=== PATIENT | male | born 1950 | race Caucasian/White ===

== ENCOUNTER 2016-08-10 13:06 | Emergency (ER) | payer MEDICAID ==
[~2016-08-10] VITALS: Ht 188 cm; Wt 84.0 kg
[2016-08-10 13:08] VITALS: BP 138/75; PULSE 72; RESP 15; TEMP 98.3; O2SAT 98
--- NOTE | 2016-08-10 13:17 | PD ---
Physical Exam Date Seen by Provider: Aug 10, 2016 Time Seen by Provider: 13:12 Narrative 65 y/o male presents with Hx. fall from tripping last night injuring his left foot, with abrasions to the left elbow, forearm, and Left Knee. Patient denies LOC, Head Injury or neck pain. Patient unable to bear weight left foot. Pain . Last tetanus 2013. V/S stable and patient awaiting med placement. Data Data Last Documented VS Vital Signs Date Time Temp Pulse Resp B/P Pulse Ox O2 Delivery O2 Flow Rate FiO2 08/10/16 13:08 98.3 72 15 138/75 98 MDM Medical Record Reviewed: Yes Supervised Visit with CHRISTIE: Yes Condition: Stable Vladimir Santana Aug 10, 2016 13:17
--- NOTE | 2016-08-10 13:32 | PD ---
HPI Chief Complaint: Fall Time Seen by Provider: 13:32 Travel History International Travel<30 days: No Contact w/Intl Traveler<30days: No Traveled to known affect area: No History of Present Illness HPI 65-year-old male with a history of hypertension, hyperlipidemia, PAD presents to the emergency department for evaluation of tripped and fall that occurred yesterday. Patient states that yesterday he was walking outside his apartment last night wearing flip-flops and slipped on his flip-flops causing him to fall. States that he did have a hold of his crutch and the side rail of the ramp when he fell so he landed on his bottom. States he somehow injured his left foot and left forearm when he fell. Denies head trauma or loss of consciousness. He is complaining of pain over the top of his left foot aggravated with palpation and weightbearing. States that he has a bruise to his left forearm and also an abrasion but states when he palpates the area he feels like there might be something stuck in the skin. He states that secondary to his peripheral arterial disease he has chronic numbness and tingling in the left lower leg, states that it feels slightly worse over the area of his pain. No other complaints. PFSH Past Medical History Hx Anticoagulant Therapy: Yes Heart Rhythm Problems: Yes (BRADYCARDIA ) Cardiac Catheterization: Yes Cardiovascular Problems: Yes (PACEMAKER) Cerebrovascular Accident: Yes (CVA) Coronary Artery Disease: Yes Diminished Hearing: No Immunizations Current: No Renal Failure: Yes (STAGE 3 KIDNEY DSE ) Tetanus Vaccination: Unknown Influenza Vaccination: No Past Surgical History Cardiac Surgery: Yes (PACEMAKER 2014, STENT IN THE ARTERY , BYPASS TO L LEG ) Coronary Stent: Yes (2001 X 2 ) Tonsillectomy: Yes Social History Alcohol Use: Yes (BEER ) Tobacco Use: Yes (1 PPD ) Substance Use: No Allergies-Medications (Allergen,Severity, Reaction): Coded Allergies: No Known Allergies (Unverified , 08/10/16) Reported Meds & Prescriptions Reported Meds & Active Scripts Active Lortab (Hydrocodone-Acetaminophen) 5-325 Mg Tab 1 Tab PO Q6H PRN Reported Mirtazapine 7.5 Mg Tab 7.5 Mg PO HS Cilostazol 50 Mg Tab 50 Mg PO BID [place] (Hydrocodone-Acetaminophen) 7.5-325 mg Tab 1 Tab PO QID PRN Lipitor (Atorvastatin Calcium) 10 Mg Tab 10 Mg PO HS Flonase Nasal [place] (Fluticasone Nasal [place]y) 50 Mcg/Act Woody 2 Woody EACH NARE DAILY Toprol XL (Metoprolol Succinate) 25 Mg Tab 12.5 Mg PO DAILY Flovent Hfa 10.6 GM Inh (Fluticasone Propionate) 44 Mcg/Act Inh 1-2 Puff INH BID Use daily at the same time. Gabapentin 300 Mg Cap 300 Mg PO TID Lisinopril 5 Mg Tab 5 Mg PO DAILY Review of Systems Except as stated in HPI: all other systems reviewed are Neg Physical Exam Narrative GENERAL: Well-nourished and well-developed pleasant male patient in no acute distress who is nontoxic appearing. SKIN: Warm and dry. Left forearm with two abrasions, no foreign body material noted. HEAD: Normocephalic and atraumatic. EYES: No injection, drainage, or hyphema noted. PERRLA. EOMI. ENT: No nasal drainage noted. Oropharynx is clear. NECK: Supple and the trachea is midline. CARDIOVASCULAR: Regular rate and rhythm. RESPIRATORY: Breath sounds are equal bilaterally with no accessory muscle use, wheezing, rhonchi, or crackles. MUSCULOSKELETAL: Swelling over the dorsal aspect of left foot with tenderness to palpation. DP pulses are not palpable however they are dopplerable bilaterally, patient reports this is his baseline. Capillary refill is within normal limits. Sensation is intact. Left forearm with small contusion. No obvious deformities, swelling, cyanosis, or ecchymosis is present throughout the upper and lower extremities. Patient has full range of motion without any signs of neurovascular compromise. NEUROLOGICAL: Awake, alert, and oriented. Normal speech and gait. Cranial nerves are grossly intact. Data Data Last Documented VS Vital Signs Date Time Temp Pulse Resp B/P Pulse Ox O2 Delivery O2 Flow Rate FiO2 08/10/16 13:08 98.3 72 15 138/75 98 Orders Foot, Complete ([id number]) (08/10/16 13:31) Forearm (2vws) (08/10/16 13:31) Acetamin-Hydrocod 325-5 Mg (Bells 5-325 (08/10/16 13:45) Splint Or Brace Apply/Monitor (08/10/16 14:48) Splint Or Brace Apply/Monitor (08/10/16 14:51) MDM Medical Decision Making Medical Screen Exam Complete: Yes Emergency Medical Condition: Yes Differential Diagnosis Contusion versus sprain versus fracture versus abrasion Narrative Course 65-year-old male presents to the emergency department for evaluation of left foot pain and left forearm contusion status post fall that occurred last night. Patient is afebrile, vital signs are stable. All extremities are neurovascularly intact. X-ray imaging has been ordered and is pending. X-ray of the left forearm is negative for any acute abnormalities, no foreign body. X-ray of the left foot shows nondisplaced fifth metatarsal base fracture, nondisplaced fifth metatarsal head fracture, nondisplaced fifth toe proximal phalanx fracture. The patient does have swelling and pain over all of these locations and therefore these are acute fractures. The patient states he will not tolerate using crutches but states he has a walker at home. We'll place him in a walking boot and he is instructed to use his walker and avoid weightbearing on the left foot. Fifth and fourth toes are emeterio taped. He is instructed to follow-up with a flat locker. Patient verbalizes understanding and agreement with treatment plan. Diagnosis Primary Impression: Fracture of fifth metatarsal bone of left foot Qualified Code: S92.355A - Closed nondisplaced fracture of fifth metatarsal bone of left foot, initial encounter Additional Impression: Fracture of fifth toe, left, closed Qualified Code: S92.502A - Fracture of fifth toe, left, closed, initial encounter Referrals: Malika Norton DPM Physician General Practice Patient Instructions: Foot Fracture in Adults (ED), General Instructions, Toe Fracture (ED) Additional Instructions: Walking boot. Avoid weight bearing on the left foot. Elevate left foot. Apply ice for 20 minutes on, 20 minutes off. Take medication as prescribed with food and a full glass of water. Do not take Lortab with alcohol or while driving. Follow-up with your Primary Care Physician. Return to the ED for any acute worsening of symptoms. Med/Other Pt SpecificInfo: Prescription(s) given Scripts Hydrocodone-Acetaminophen (Lortab)5-325 Mg Tab1 Tab PO Q6H PRN (PAIN GREATER THAN 6) #20 TAB Ref 0 Prov:Alex Castro MD 08/10/16 Disposition: 01 DISCHARGE HOME Condition: Stable Geraldine Kitchen Aug 10, 2016 13:32
[2016-08-10] MEDS ORDERED: ACETAMINOPHEN/HYDROcodone 325 MG/5 MG TAB PO ONE (13:45)
[2016-08-10] MEDS ORDERED: LIPI10TA PO (14:33)
[2016-08-10] MEDS ORDERED: GABA300C5 PO (14:33)
[2016-08-10] MEDS ORDERED: CILO50TA PO (14:33)
[2016-08-10] MEDS ORDERED: FLUT1SPR5 EACH NARE (14:33)
[2016-08-10] MEDS ORDERED: LISI-519 PO (14:33)
[2016-08-10] MEDS ORDERED: HYDR-3288 PO (14:33)
[2016-08-10] MEDS ORDERED: FLUTI44I INH (14:33)
[2016-08-10] MEDS ORDERED: TOPR25TA PO (14:33)
[2016-08-10] MEDS ORDERED: REME15TA PO (14:33)
[2016-08-10] MEDS ORDERED: MIRT1TAB PO (14:34)
--- NOTE | 2016-08-10 14:37 | RADRPT ---
EXAM DATE/TIME: 08/10/2016 13:46 [facility] COMPARISON: No previous studies available for comparison. INDICATIONS : Fall injury to left foot. MEDICAL HISTORY : None. SURGICAL HISTORY : None. ENCOUNTER: Initial ACUITY: 1 day PAIN SCORE: 0/10 LOCATION: Left foot FINDINGS: 3 views left foot. Bone alignment within normal limits. Nondisplaced horizontal fracture of the base of the fifth metatarsal 1 cm to the tarsometatarsal joint. Nondisplaced fracture base of fifth toe pr oximal phalanx, age indeterminate. Nondisplaced fracture fifth metatarsal head also age-indeterminate . CONCLUSION: Nondisplaced fifth metatarsal base fracture. Nondisplaced fifth toe proximal phalanx fracture, age-in determinate and nondisplaced fifth metatarsal head fracture age-indeterminate. Aroldo Spencer MD on August 10, 2016 at 14:30 Board Certified Radiologist. This report was verified electronically.
--- NOTE | 2016-08-10 14:40 | RADRPT ---
EXAM DATE/TIME: 08/10/2016 13:49 [facility] COMPARISON: No previous studies available for comparison. INDICATIONS : Fall, lacerations to posterior forearm. MEDICAL HISTORY : None. SURGICAL HISTORY : None. ENCOUNTER: Initial ACUITY: 1 day PAIN SCORE: 0/10 LOCATION: Left forearm FINDINGS: 2 views left forearm. Bone alignment within normal limits. No evidence of fracture. CONCLUSION: No evidence of fracture. No radiopaque foreign body identified. Aroldo Spencer MD on August 10, 2016 at 14:37 Board Certified Radiologist. This report was verified electronically.
[2016-08-10] MEDS ORDERED: HYDR-3533 PO (14:50)
== END 2016-08-10 16:03 | disposition home or self-care (01) ==
LOC: NEPD 13:06
DX: S92.355A Nondisplaced fracture of fifth metatarsal bone, left foot, initial encounter for closed fracture (principal); S92.505A Nondisplaced unspecified fracture of left lesser toe(s), initial encounter for closed fracture; M79.632 Pain in left forearm; W01.0XXA Fall on same level from slipping, tripping and stumbling without subsequent striking against object, initial encounter; Y93.01 Activity, walking, marching and hiking; Y92.038 Other place in apartment as the place of occurrence of the external cause; I10 Essential (primary) hypertension; I73.9 Peripheral vascular disease, unspecified; Z79.01 Long term (current) use of anticoagulants; F17.210 Nicotine dependence, cigarettes, uncomplicated
CPT/HCPCS: 73090; 73630; 99283; L2114

== ENCOUNTER 2017-04-09 12:45 | Emergency (ER) | payer MEDICAID ==
[~2017-04-09 12:45] MED LIST: CILO50TA PO; FLUT1SPR5 EACH NARE; FLUTI44I INH; GABA300C5 PO; HYDR-3288 PO; HYDR-3533 PO; LIPI10TA PO; LISI-519 PO; MIRT1TAB PO; TOPR25TA PO
[2017-04-09 12:48] VITALS: BP 151/96; PULSE 82; RESP 16; TEMP 98.2; O2SAT 98
--- NOTE | 2017-04-09 14:16 | RADRPT ---
EXAM DATE/TIME: 04/09/2017 13:27 [facility] COMPARISON: No previous studies available for comparison. INDICATIONS : Cough, short of breath. MEDICAL HISTORY : Chronic obstructive pulmonary disease. Congestive heart failure. SURGICAL HISTORY : defibrillator ENCOUNTER: Initial ACUITY: 3 days PAIN SCORE: 0/10 LOCATION: Bilateral chest FINDINGS: PA and lateral views of the chest demonstrate the lungs to be symmetrically aerated with biapical sca rring/emphysema. No confluent infiltrate. Left subclavian bipolar pacer/defibrillator. There appears to be a coronary stent projecting over the heart on the lateral. Osseous structures are intact. CONCLUSION: 1. Biapical fibrotic/emphysematous changes. This appears mild in severity. No confluent infiltrates. 2. Coronary stent projecting over the heart shadow on the lateral. Left subclavian bipolar pacer/defi brillator. Ej Deleon MD on April 09, 2017 at 14:11 Board Certified Radiologist. This report was verified electronically.
[2017-04-09] MEDS ORDERED: ADVA115A INH (15:07)
[2017-04-09] MEDS ORDERED: SYMB80AE INH (15:07)
[2017-04-09] MEDS ORDERED: ALBUAER3 INH (15:50)
[2017-04-09] MEDS ORDERED: AUGM875T3 PO (15:50)
[2017-04-09] MEDS ORDERED: PRED20 PO (15:50)
--- NOTE | 2017-04-09 15:51 | PD ---
HPI Chief Complaint: Respiratory Symptoms Time Seen by Provider: 15:00 Travel History International Travel<30 days: No Contact w/Intl Traveler<30days: No Traveled to known affect area: No History of Present Illness HPI 66-year-old male patient presents emergency department for evaluation of productive cough 2 days and congestion. Patient states the phlegm is thick and green in color. He denies any fevers, chills, malaise. Patient denies any chest pain, ear pain, throat pain, nausea, vomiting, diarrhea. Patient states he quit smoking 2 months ago however he smells like fresh cigarette smoke. PFSH Past Medical History Hx Anticoagulant Therapy: Yes Heart Rhythm Problems: Yes (BRADYCARDIA ) Cardiac Catheterization: Yes Cardiovascular Problems: Yes (PACEMAKER) Cerebrovascular Accident: Yes (CVA) Coronary Artery Disease: Yes Diminished Hearing: No Immunizations Current: No Renal Failure: Yes (STAGE 3 KIDNEY DSE ) Past Surgical History Cardiac Surgery: Yes (PACEMAKER 2014, STENT IN THE ARTERY , BYPASS TO L LEG ) Coronary Stent: Yes (2000 X 2 ) Tonsillectomy: Yes Social History Alcohol Use: Yes (BEER ) Tobacco Use: Yes (1 PPD ) Substance Use: No Allergies-Medications (Allergen,Severity, Reaction): Coded Allergies: No Known Allergies (Unverified Adverse Reaction, Unknown, 04/09/17) Reported Meds & Prescriptions Reported Meds & Active Scripts Active Lortab (Hydrocodone-Acetaminophen) 5-325 Mg Tab 1 Tab PO Q6H PRN Reported Advair Hfa 12 GM Inh (Fluticasone-Salmeterol 12 GM Inh) 115-21 Mcg/Act Aer 2 Puff INH BID Symbicort Inh (Budesonide/Formoterol Fumarate) 80-4.5 Mcg/Act Aero 2 Puff INH Q12HR Mirtazapine 7.5 Mg Tab 7.5 Mg PO HS Cilostazol 50 Mg Tab 50 Mg PO BID [place] (Hydrocodone-Acetaminophen) 7.5-325 mg Tab 1 Tab PO QID PRN Lipitor (Atorvastatin Calcium) 10 Mg Tab 10 Mg PO HS Flonase Nasal [place] (Fluticasone Nasal [place]) 50 Mcg/Act [place] 2 [place] EACH NARE DAILY Toprol XL (Metoprolol Succinate) 25 Mg Tab 12.5 Mg PO DAILY Flovent Hfa 10.6 GM Inh (Fluticasone Propionate) 44 Mcg/Act Inh 1-2 Puff INH BID Use daily at the same time. Gabapentin 300 Mg Cap 300 Mg PO TID Lisinopril 5 Mg Tab 5 Mg PO DAILY Review of Systems Except as stated in HPI: all other systems reviewed are Neg Physical Exam Narrative GENERAL: Well-nourished, well-developed 66-year-old male patient in no acute distress. Nontoxic appearing. SKIN: Focused skin assessment warm/dry. HEAD: Normocephalic. Atraumatic. EYES: No scleral icterus. No injection or drainage. NECK: Supple, trachea midline. No JVD or lymphadenopathy. CARDIOVASCULAR: Regular rate and rhythm without murmurs, gallops, or rubs. RESPIRATORY: Breath sounds equal bilaterally coarse throughout, diminished in the bases. No accessory muscle use. GASTROINTESTINAL: Abdomen soft, non-tender, nondistended. Data Data Last Documented VS Vital Signs Date Time Temp Pulse Resp B/P (MAP) Pulse Ox O2 Delivery O2 Flow Rate FiO2 04/09/17 12:48 98.2 82 16 151/96 (114) 98 Orders Orders Chest, Pa & Lat (04/09/17 ) [facility] Medical Decision Making Medical Screen Exam Complete: Yes Emergency Medical Condition: Yes Differential Diagnosis Differential diagnoses include but not limited to COPD exacerbation, bronchitis , pneumonia, URI Narrative Course Chest x-ray shows emphysematous changes, no infiltrates. Physical exam is consistent with bronchitis. Patient has maintenance inhaler but does not have a rescue inhaler. Patient discharged home with prescription for prednisone, albuterol inhaler and Augmentin. Antibiotic therapy was deemed necessary in this case due to the patient's comorbidities to treat and prevent worsening infection. Patient given instructions to return the emergency Department with any worsening condition. Last Impressions Chest X-Ray 04/09/17 0000 Signed Impressions: Service Date/Time: March 13:27 - CONCLUSION: 1. Biapical fibrotic/emphysematous changes. This appears mild in severity. No confluent infiltrates. 2. Coronary stent projecting over the heart shadow on the lateral. Left subclavian bipolar pacer/defibrillator. Ej Deleon MD Diagnosis Primary Impression: Bronchitis Referrals: Primary Care Physician Patient Instructions: Acute Bronchitis (ED), General Instructions Additional Instructions: Please return to emergency department if your symptoms return or worsen. Follow up with your primary care provider. Take medications as prescribed. Supportive care, stay hydrated, get enough rest, diet as tolerated. Med/Other Pt SpecificInfo: Prescription(s) given Scripts Amoxicillin-Clavulanate (Augmentin) 875-125 Mg Tab 1 TAB PO BID for Infection for 5 Days, #10 TAB 0 Refills Prov: Sanjuana Heath 04/09/17 Prednisone (Prednisone) 20 Mg Tab 40 MG PO DAILY for 5 Days, #10 TAB 0 Refills Take 40 mg (2 tablets) daily for 5 days Prov: Sanjuana Heath 04/09/17 Albuterol 8.5 GM Inh (Proair Hfa 8.5 GM Inh) 90 Mcg/Act Aer 2 PUFF INH Q4-6H Y for SHORTNESS OF BREATH, #1 INHALER 0 Refills 108 mcg/actuation Prov: Sanjuana Heath 04/09/17 Disposition: 01 DISCHARGE HOME Condition: Stable Sanjuana Heath Apr 09, 2017 15:51
== END 2017-04-09 16:05 | disposition home or self-care (01) ==
LOC: NEPK 12:45
DX: J44.9 Chronic obstructive pulmonary disease, unspecified (principal); I25.10 Atherosclerotic heart disease of native coronary artery without angina pectoris; F17.210 Nicotine dependence, cigarettes, uncomplicated
CPT/HCPCS: 71020; 99284

== ENCOUNTER 2018-01-16 13:23 | Inpatient (IN) ==
[2018-01-16] MEDS ORDERED: Sod Chloride 0.9% Inj 1,000 ML IV.SIG ONE (13:38)
[2018-01-16] MEDS ORDERED: Tetanus/Diphtheria Toxoid Adult Vaccine Inj 0.5 ML Vial IM ONE (13:38)
[2018-01-16] MEDS ORDERED: Lidocaine 2%/Epinephrine 1:100,000 30 ML MDV INFILTRATN ONE (13:47)
[2018-01-16 14:11] LABS: Baso % (Auto) 0.7 % (0.0-2.0); Eos # (Auto) 0.1 th/mm3 (0.0-0.4); Hematocrit 34.3 % (39.0-51.0); Hemoglobin 11.7 gm/dL (13.0-17.0); Lymph # (Auto) 1.1 th/mm3 (1.0-4.8); Lymph % (Auto) 20.4 % (9.0-44.0); Mean Corpuscular HGB Conc 34.2 % (32.0-36.0); Mean Corpuscular Volume 96.5 fL (80.0-100.0); Mean Platelet Volume 6.7 fL (7.0-11.0); Mono # (Auto) 0.7 th/mm3 (0.0-0.9); Mono % (Auto) 12.8 % (0.0-8.0); Neut # (Auto) 3.4 th/mm3 (1.8-7.7); Neut % (Auto) 65.1 % (16.0-70.0); Platelet Count 169 th/mm3 (150-450); Red Blood Count 3.56 mil/mm3 (4.50-5.90); Red Cell Distribution Width 15.2 % (11.6-17.2); White Blood Count 5.2 th/mm3 (4.0-11.0)
--- NOTE | 2018-01-16 14:12 | XR ---
EXAM DATE: 01/16/2018 1:39 PM EDT AGE/SEX: 67 years / Male INDICATIONS: Trauma. Fall. Fracture of the right proximal humerus. CLINICAL DATA: This is the patient's initial encounter. Patient reports that signs and symptoms have been present for 1 day and indicates a pain score of 0/10. MEDICAL/SURGICAL HISTORY: . Chronic obstructive pulmonary disease. Congestive heart failure. . Defibrillator COMPARISON: [facility] [place], CHEST PA & LAT, 04/09/2017. . FINDINGS: The lung strange are clear and well-aerated. No focal or acute infiltrates are demonstrated. The heart size is enlarged but stable. There is a pacemaker overlying the left chest. There is a nondisplaced oblique fracture involving the proximal shaft of the right humerus. No joint dislocation is seen at t he shoulder. The right ribs are grossly intact. CONCLUSION: 1. Nondisplaced oblique fracture involving the proximal shaft of the right humerus. 2. No new or acute intrathoracic disease. Electronically signed by: Curtis Burciaga MD 01/16/2018 2:11 PM EDT
[2018-01-16] MEDS ORDERED: Lidocaine 2%/Epinephrine 1;100,000 Inj 50 ML Vial INFILTRATN ONE (14:15)
--- NOTE | 2018-01-16 14:42 | CT ---
EXAM DATE: 01/16/2018 1:43 PM EDT AGE/SEX: 67 years / Male INDICATIONS: Syncopal episode today. CLINICAL DATA: This is the patient's initial encounter. Patient reports that signs and symptoms have been present for 1 day and indicates a pain score of 5/10. MEDICAL/SURGICAL HISTORY: Chronic obstructive pulmonary disease. Coronary artery stent. RADIATION DOSE: 66.34 CTDI (mGy) COMPARISON: No prior exams available for comparison. TECHNIQUE: CT of the head without contrast. Using automated exposure control and adjustment of the mA and/or kV according to patient size, radiation dose was kept as low as reasonably achievable to ob tain optimal diagnostic quality images. DICOM format image data is available electronically for revi ew and comparison. FINDINGS: Cerebrum: The ventricles are normal for age. No evidence of midline shift, mass lesion, hemorrhage or acute infarction. No extraaxial fluid collections are seen. There is a focal area of encephalomal acia involving the right temporal parietal lobe adjacent to the right sylvian fissure. This most like ly an old area of infarction. Posterior Fossa: The cerebellum and brainstem are intact. The 4th ventricle is midline. The cerebe llopontine angle is unremarkable. Extracranial: The visualized portion of the orbits is intact. Skull: The calvaria is intact. No evidence of skull fracture. CONCLUSION: 1. No focal or acute intracranial hemorrhage. 2. Focal area of encephalomalacia involving the right temporal parietal lobe adjacent to the right s ylvian fissure suggestive of an old area of infarction. If clinically indicated, this can be further evaluated with an MRI of the brain on a nonemergent outpatient basis. . Electronically signed by: Curtis Burciaga MD 01/16/2018 2:41 PM EDT
[2018-01-16 14:48] LABS: Albumin 2.5 g/dL (3.4-5.0); Calcium 7.4 mg/dL (8.5-10.1); Carbon Dioxide 24.1 meq/L (21.0-32.0); Potassium 3.9 meq/L (3.5-5.1); Total Protein 5.4 g/dL (6.4-8.2); Troponin I 0.02 ng/mL (0.02-0.05)
[2018-01-16] MEDS ORDERED: Acetaminophen 325 MG Tablet PO PRN (16:12)
--- NOTE | 2018-01-16 16:36 | XR ---
EXAM DATE: 01/16/2018 3:56 PM EDT AGE/SEX: 67 years / Male INDICATIONS: Right proximal humeral pain after falling during syncopal episode today. CLINICAL DATA: This is the patient's subsequent encounter. Patient reports that signs and symptoms h ave been present for 1 day and indicates a pain score of 10/10. MEDICAL/SURGICAL HISTORY: Hypertension. Smoker. None. COMPARISON: No prior exams available for comparison. FINDINGS: There is a nondisplaced oblique fracture the proximal shaft of the right humerus. The rest the bony s tructures are grossly intact. No joint dislocation is demonstrated. CONCLUSION: Nondisplaced oblique fracture involving the proximal shaft of the right humerus. Electronically signed by: Curtis Burciaga MD 01/16/2018 4:35 PM EDT
--- NOTE | 2018-01-16 16:40 | P.HPIM ---
History of Present Illness Primary Care Physician: Aidan Main Chief Complaint: Passed out History of Present Illness: The patient is a 67-year-old male with a past medical history of CAD and peripheral vascular disease who is presenting to the hospital after passing out. The patient says he was walking earlier and stepped on a sidewalk when all of a sudden he woke up bleeding from his head. He denied any symptoms prior to passing out. He said there were people around him and that he thinks he passed out for only a few seconds. He says he recently was treated at an outside hospital where he had his pacemaker adjusted. He says since going home last month he has had 2 seizure-like activities. He says on both accounts he passed out, once on the floor and once in a chair. He says on 1 of the occasions he felt a sensation like his tongue rolled up in his mouth. The patient currently experiences significant pain in his right arm. He says he has had his pacemaker interrogated recently and also today. 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 - Medical History Medical History: Medical History (Last Updated 01/16/18 @ 17:13 by Evin Orourke DO) Bleeding ulcer Bradycardia COPD (chronic obstructive pulmonary disease) Femoral-femoral bypass graft thrombosis, left Femoral-femoral bypass graft thrombosis, right Fracture of right hip requiring operative repair Myocardial infarction Peripheral vascular disease Cardiac defibrillator in place - Surgical History Surgical History: Surgical History (Last Reviewed 01/16/18 @ 16:38 by Evin Orourke DO) H/O heart artery stent History of angioplasty of peripheral vessel - Family History Family History: Family History (Last Updated 01/16/18 @ 17:13 by Evin Orourke DO) Other Adopted - Social History I have reviewed the patient's Social History: Yes - Tobacco History Second Hand Smoke Exposure: Yes Tobacco Use In Past 30 Days: Yes Smoking Status: Current every day smoker Tobacco Type: Cigarettes - Alcohol History How Often Do You Have a Drink Containing Alcohol: 4 or more times a week - Substance Use History Substance History: No History of Abuse - Travel History Recent Travel in the [place] Within the Last 8 Weeks: No Recent Travel Out of the Country Within the Last 8 Weeks: No - Immunization History Tetanus Immunization: <5 Years Tetanus Immunization Year if Known: 2015 Medications and Allergies Active Medications: Active Medications Acetaminophen (Tylenol) 650 mg PO Q4H PRN PRN Reason: Temp > 100.4 Clopidogrel Bisulfate (Plavix) 75 mg PO DAILY RIKY Allergies Allergy/AdvReac Type Severity Reaction Status Date / Time No Known Allergies Unknown Uncoded 04/09/17 15:07 Home Medications Medication Instructions Recorded Confirmed Type albuterol sulfate 1 puff INHALATION Q6H PRN 01/16/18 01/16/18 History clopidogrel [Plavix] 75 mg PO DAILY 01/16/18 01/16/18 History Exam Vital signs: Vital Signs 01/16/18 13:33 01/16/18 14:58 01/16/18 16:11 Temperature 97.9 F Pulse Rate 71 Respiratory Rate 18 Blood Pressure 131/72 147/81 H Pulse Oximetry 98 96 Intake & Output 01/15/18 01/16/18 01/16/18 18:59 06:59 18:59 Intake Total 1000 / 1000 Balance 1000 / 1000 Weight 83.915 kg Intake: IV 1000 / 1000 NS Inj 1,000 ML @ Wide Open IV. 1000 / 1000 SIG BOLUS ONE Rx#:[id number] Narrative: General: No distress. HEENT: Incision sutured on right forehead. Lungs: CTAB. Heart: RRR. No murmurs. Abdomen: Nontender, nondistended. Extremities: Right arm with significant pain and reduced ROM. No LE edema. Neuro: A&O x3. EOMI. Moves upper and lower extremities. Results - Labs CBC & Chem 7: 01/16/18 13:56 01/16/18 13:56 Labs: Short CBC 01/16/18 Range/Units 13:56 WBC 5.2 (4.0-11.0) th/mm3 Hgb 11.7 L (13.0-17.0) gm/dL Hct 34.3 L (39.0-51.0) % Plt Count 169 (150-450) th/mm3 BMP 01/16/18 13:56 Sodium 137 Potassium 3.9 Chloride 104 Carbon Dioxide 24.1 BUN 15 Creatinine 1.10 Calcium 7.4 L* Cardiac Enzymes 01/16/18 Range/Units 13:56 Troponin I 0.02 (0.02-0.05) ng/mL Liver Function 01/16/18 Range/Units 13:56 Total Bilirubin 0.4 (0.2-1.0) mg/dL AST 22 (15-37) U/L ALT 17 (12-78) U/L Alkaline Phosphatase 114 (45-117) U/L Albumin 2.5 L (3.4-5.0) g/dL - Imaging Impressions Head CT 01/16/18 13:38 CONCLUSION: 1. No focal or acute intracranial hemorrhage. 2. Focal area of encephalomalacia involving the right temporal parietal lobe adjacent to the right sylvian fissure suggestive of an old area of infarction. If clinically indicated, this can be further evaluated with an MRI of the brain on a nonemergent outpatient basis. . Chest X-Ray 01/16/18 13:39 CONCLUSION: 1. Nondisplaced oblique fracture involving the proximal shaft of the right humerus. 2. No new or acute intrathoracic disease. Humerus X-Ray 01/16/18 15:56 CONCLUSION: Nondisplaced oblique fracture involving the proximal shaft of the right humerus. Caprini VTE Risk Assessment Caprini VTE Risk Assessment: Moderate/High Risk (score >= 2) Caprini Risk Assessment Model: Point Value = 1 Point Value = 2 Point Value = 3 Point Value = 5 Age 41-60 Minor surgery BMI > 25 kg/m2 Swollen legs Varicose veins or History of unexplained or recurrent spontaneous Oral contraceptives or hormone replacement Sepsis (< 1 month) Serious lung disease, including pneumonia (< 1 month) Abnormal pulmonary function Acute myocardial infarction Congestive heart failure (< 1 month) History of inflammatory bowel disease Medical patient at bed rest Age 61-74 Arthroscopic surgery Major open surgery (> 45 min) Laparoscopic surgery (> 45 min) Malignancy Confined to bed (> 72 hours) Immobilizing plaster cast Central venous access Age >= 75 History of VTE Family history of VTE Factor V Leiden Prothrombin [id number] Lupus anticoagulant Anticardiolipin antibodies Elevated serum homocysteine Heparin-induced thrombocytopenia Other congenital or acquired thrombophilia Stroke (< 1 month) Elective arthroplasty Hip, pelvis, or leg fracture Acute spinal cord injury (< 1 month) Prophylaxis Regimen: Total Risk Factor Score Risk Level Prophylaxis Regimen 0-1 Low Early ambulation 2 Moderate Order ONE of the following: *Sequential Compression Device (SCD) *Heparin 5000 units SQ BID 3-4 Higher Order ONE of the following medications: *Heparin 5000 units SQ TID *Enoxaparin/Lovenox 40 mg SQ daily (WT < 150 kg, CrCl > 30 mL/min) *Enoxaparin/Lovenox 30 mg SQ daily (WT < 150 kg, CrCl > 10-29 mL/min) *Enoxaparin/Lovenox 30 mg SQ BID (WT < 150 kg, CrCl > 30 mL/min) AND/OR *Sequential Compression Device (SCD) 5 or more Highest Order ONE of the following medications: *Heparin 5000 units SQ TID (Preferred with Epidurals) *Enoxaparin/Lovenox 40 mg SQ daily (WT < 150 kg, CrCl > 30 mL/min) *Enoxaparin/Lovenox 30 mg SQ daily (WT < 150 kg, CrCl > 10-29 mL/min) *Enoxaparin/Lovenox 30 mg SQ BID (WT < 150 kg, CrCl > 30 mL/min) AND *Sequential Compression Device (SCD) Assessment and Plan - Plan Syncope ? Seizure. The patient had his pacemaker interrogated recently as well as in the emergency department. No abnormalities were found. He has had multiple episodes of passing out since last month. CT of the head suggesting old infarction. -Neurochecks and seizure precautions. -EEG. -Neurology consultation. -Telemetry. -Trend troponins. -Orthostatic blood pressure. Right humeral fracture Noted on imaging. Nondisplaced. -Continue sling. -Pain control with a bowel regimen. -Physical therapy. Urinary hesitancy The patient says that he has been following up with urology as an outpatient. -Continue Flomax. -Outpatient follow-up with urology. Hyperglycemia Likely a stress reaction. -Check a hemoglobin A1c. Nicotine abuse Smokes a pack a day. -cessation instruction. CAD/ PVD History of two cardiac stents and has had LE bypass. -continue ASA and Plavix. Med rec not complete Current med list unavailable. -requested updated med rec. PPx: Lovenox Code Status: Full
[2018-01-16] MEDS: Morphine Inj 4 MG/ML Vial IV.PUSH PRN ×2 (19:12→23:30)
[2018-01-16] MEDS: Senna/Docusate Sodium 8.6/50 MG Tablet PO SCH (20:54)
[2018-01-17 03:02] LABS: Baso % (Auto) 0.6 % (0.0-2.0); Eos # (Auto) 0.1 th/mm3 (0.0-0.4); Eos % (Auto) 1.2 % (0.0-4.0); Hematocrit 37.8 % (39.0-51.0); Hemoglobin 12.8 gm/dL (13.0-17.0); Lymph # (Auto) 1.2 th/mm3 (1.0-4.8); Lymph % (Auto) 21.5 % (9.0-44.0); Mean Corpuscular Hemoglobin 32.9 pg (27.0-34.0); Mean Corpuscular Volume 96.9 fL (80.0-100.0); Mean Platelet Volume 6.6 fL (7.0-11.0); Mono # (Auto) 0.7 th/mm3 (0.0-0.9); Mono % (Auto) 12.2 % (0.0-8.0); Neut # (Auto) 3.7 th/mm3 (1.8-7.7); Neut % (Auto) 64.5 % (16.0-70.0); Platelet Count 172 th/mm3 (150-450); Red Cell Distribution Width 15.3 % (11.6-17.2); White Blood Count 5.8 th/mm3 (4.0-11.0)
[2018-01-17 03:18] LABS: Alanine Aminotransferase 20 U/L (12-78); Albumin 2.8 g/dL (3.4-5.0); Anion Gap 9 meq/L (5-15); Aspartate Aminotransferase 23 U/L (15-37); Blood Urea Nitrogen 15 mg/dL (7-18); Calcium 7.9 mg/dL (8.5-10.1); Carbon Dioxide 26.3 meq/L (21.0-32.0); Chloride 103 meq/L (98-107); Glomerular Filtration Rate 59 mL/min (>89); Glucose,Random 116 mg/dL (74-106); Potassium 4.5 meq/L (3.5-5.1); Sodium 138 meq/L (136-145)
[2018-01-17 03:22] LABS: Alkaline Phosphatase 128 U/L (45-117); Total Protein 6.2 g/dL (6.4-8.2); Troponin I 0.03 ng/mL (0.02-0.05)
[2018-01-17] MEDS: Enoxaparin Inj 30 MG/0.3 ML Syringe SQ SCH (09:57)
[2018-01-17] MEDS: Senna/Docusate Sodium 8.6/50 MG Tablet PO SCH ×2 (09:58→20:22)
--- NOTE | 2018-01-17 10:04 | ECG ---
Date Performed: 01/16/2018 Time Performed: 13:40:49 PTAGE: 67 years EKG: ELECTRONIC VENTRICULAR PACEMAKER ABNORMAL RHYTHM ECG INTERPRETATION BASED ON A DEFAULT AGE OF 40 YEARS NO PREVIOUS TRACING DOCTOR: Justo Jefferson Interpretating Date/Time 01/17/2018 10:02:55
[2018-01-17] MEDS: Morphine Inj 4 MG/ML Vial IV.PUSH PRN ×3 (11:51→23:58)
--- NOTE | 2018-01-17 13:49 | MB ---
cc: Luis Armando Lal MD DATE: 01/17/2018 REASON FOR CONSULTATION: Passing out/seizure. HISTORY OF PRESENT ILLNESS: Mr. Patel is a 67-year-old male with a past medical history of coronary artery disease, peripheral vascular disease, who presented to the hospital after passing out. During the encounter, the patient was seen alone without family members. He reports that had his pacemaker adjusted, placed recently and, 4 days after the pacemaker, he had 2 episodes at home where he passed out on the floor. Usually he has dizzy spells related to position; however, these episodes he was out for a few seconds, does not remember how these happened. Denies tongue biting or loss of bladder or bowel control. In the most recent episode, he was walking in the parking lot and he stepped on the sidewalk when all of a sudden he woke up bleeding from his head. He cannot recall what happened, but he denies postictal confusion, tongue biting, foaming or loss of bladder or bowel control. He is adamant that this was a seizure. He only passed out for a few seconds, as he states. In one of the episodes, he states that his tongue rolled up in his mouth during the episode, and that was the second episode at home. He fell he broke his right arm and he bruised his right eye and received stitches. The pacemaker has been interrogated yesterday in the hospital. REVIEW OF SYSTEMS: A 12-point review of systems is negative except for stated in the HPI. PAST MEDICAL HISTORY: Bradycardia, COPD, [place], peripheral vascular disease, cardiac defibrillator. PAST SURGICAL HISTORY: Heart stents angioplasty of peripheral vessels, CABG, cardiac defibrillator placement. FAMILY HISTORY: Adopted. SOCIAL HISTORY: Secondhand smoker, ex-smoker of cigarettes. Drinks 4 or more times a week. No history of drug abuse. MEDICATIONS: 1. Acetaminophen. 2. Plavix. PHYSICAL EXAMINATION: GENERAL: Awake, alert, oriented, pleasant, cooperative, not in acute distress. HEENT: Incision and sutures on the right forehead. Intact hearing and intact vision. RESPIRATORY: Clear to auscultation. No wheezes. HEART: Regular rate and rhythm, pacemaker defibrillator in place. ABDOMEN: Soft, nontender, nondistended. EXTREMITIES: Right arm is in a splint. No leg edema. NEUROLOGIC: Awake, alert, oriented to time, person and place. Intact external ocular motility. Pupils bilaterally equally reactive to light. No facial asymmetry. Intact hearing. No dysarthria. Moving all extremities equally, other than right upper extremity/splint. Intact reflexes throughout. Normal cerebellar signs. Unable to assess right upper extremity cerebellar sign. Intact sensation throughout. Gait and stance was not assessed. LABORATORY DATA: WBC 5.2, hemoglobin 11.7. Sodium 137, potassium 3.9, BUN 15, creatinine 1.1, calcium low at 7.4. LFT normal. Low albumin at 2.5. IMAGING: Head CT scan with no acute intracranial abnormality. Focal area of encephalomalacia involving the right temporoparietal lobe, adjacent to the right sylvian fissure suggestive of an old area of infarction. Chest x-ray: Nondisplaced oblique fracture involving the proximal shaft of the right humerus. No acute intrathoracic disease. EKG: Normal rhythm, ventricular pacemaker. IMPRESSION AND PLAN: 1. Syncope versus seizure. Need to rule out possible cardiac abnormality; however, pacemaker has been interrogated. No abnormalities identified. CT scan revealed remote infarct, right parietal lesion with encephalomalacia. No personal history of epilepsy. 2. Right humerus fracture. 3. History of remote stroke, right parietal lesion with no residual effect. 4. Nicotine abuse. 5. Coronary artery disease. 6. Neuro checks every 4 hours. 7. EEG. 8. Telemetry. 9. MRI brain if pacemaker is compatible. 10. Fall with seizure precautions. 11. Deep venous thrombosis prophylaxis. 12. Gastrointestinal prophylaxis. Thank you for the opportunity to participate in the care of your patient. Dr. Garcia will followup with the patient Thursday. MD NILAM Davenport/debbie , 11:15 AM , 11:27 AM
--- NOTE | 2018-01-17 14:50 | P.PN ---
Subjective Interval history: awake and alert, no complains of headaches states episodes of seziures in the past defibrillator place last by Dr. Mendez Physical Exam Vital signs: Vital Signs 01/16/18 14:58 01/16/18 16:11 01/16/18 20:00 Temperature 97.8 F Pulse Rate 70 Respiratory Rate 16 Blood Pressure 147/81 H 129/76 Pulse Oximetry 96 97 01/17/18 00:00 01/17/18 04:00 01/17/18 08:00 Temperature 98 F 98 F 98.2 F Pulse Rate 70 70 69 Respiratory Rate 17 17 14 Blood Pressure 106/64 106/64 153/70 H Pulse Oximetry 96 96 98 Intake & Output 01/16/18 01/17/18 01/17/18 18:59 06:59 18:59 Intake Total 1000 / 1000 Output Total 400 / 400 Balance 1000 / 1000 -400 / -400 Weight 83.915 kg 83.915 kg Intake: IV 1000 / 1000 NS Inj 1,000 ML @ Wide Open IV. 1000 / 1000 SIG BOLUS ONE Rx#:[id number] Output: Urine 400 / 400 Narrative: General: No distress. HEENT: Incision sutured on right forehead. Lungs: CTAB. Heart: RRR. No murmurs. Abdomen: Nontender, nondistended. Extremities: Right arm S/Sin place No LE edema. Neuro: A&O x3. EOMI. Results - Labs CBC & Chem 7: 01/17/18 02:45 01/17/18 02:45 Laboratory Results - last 24 hr 01/16/18 01/16/18 01/16/18 13:56 13:56 13:56 WBC RBC Hgb Hct MCV MCH MCHC RDW Plt Count MPV Neut % (Auto) Lymph % (Auto) [place] % (Auto) Eos % (Auto) Baso % (Auto) Neut # (Auto) Lymph # (Auto) [place] # (Auto) Eos # (Auto) Baso # (Auto) WBC Differential Differential Comment Sodium 137 Potassium 3.9 Chloride 104 Carbon Dioxide 24.1 Anion Gap 9 BUN 15 Creatinine 1.10 Estimated GFR 67 L POC Glucose Random Glucose 167 H Hemoglobin A1c 6.0 Calcium 7.4 L* Prot Corrected Calcium 8.3 L Total Bilirubin 0.4 AST 22 ALT 17 Alkaline Phosphatase 114 Troponin I 0.02 Total Protein 5.4 L Albumin 2.5 L TSH 3.290 01/16/18 01/16/18 01/17/18 20:33 20:54 02:45 WBC RBC Hgb Hct MCV MCH MCHC RDW Plt Count MPV Neut % (Auto) Lymph % (Auto) [place] % (Auto) Eos % (Auto) Baso % (Auto) Neut # (Auto) Lymph # (Auto) [place] # (Auto) Eos # (Auto) Baso # (Auto) WBC Differential Differential Comment Sodium 138 Potassium 4.5 Chloride 103 Carbon Dioxide 26.3 Anion Gap 9 BUN 15 Creatinine 1.24 Estimated GFR 59 L POC Glucose 166 H Random Glucose 116 H Hemoglobin A1c Calcium 7.9 L Prot Corrected Calcium Total Bilirubin 0.5 AST 23 ALT 20 Alkaline Phosphatase 128 H Troponin I 0.03 0.03 Total Protein 6.2 L D Albumin 2.8 L TSH 01/17/18 01/17/18 01/17/18 02:45 07:42 13:33 WBC 5.8 RBC 3.90 L Hgb 12.8 L Hct 37.8 L MCV 96.9 MCH 32.9 MCHC 34.0 RDW 15.3 Plt Count 172 MPV 6.6 L Neut % (Auto) 64.5 Lymph % (Auto) 21.5 [place] % (Auto) 12.2 H Eos % (Auto) 1.2 Baso % (Auto) 0.6 Neut # (Auto) 3.7 Lymph # (Auto) 1.2 [place] # (Auto) 0.7 Eos # (Auto) 0.1 Baso # (Auto) 0.0 WBC Differential . Differential Comment Auto diff final Sodium Potassium Chloride Carbon Dioxide Anion Gap BUN Creatinine Estimated GFR POC Glucose 111 H 154 H Random Glucose Hemoglobin A1c Calcium Prot Corrected Calcium Total Bilirubin AST ALT Alkaline Phosphatase Troponin I Total Protein Albumin TSH - Imaging Impressions Humerus X-Ray 01/16/18 15:56 CONCLUSION: Nondisplaced oblique fracture involving the proximal shaft of the right humerus. Assessment and Plan - Plan 67 years old male left handed ? Seizure vs Syncope The patient had his pacemaker interrogated recently as well as in the emergency department. No abnormalities were found. He has had multiple episodes of passing out since last month. CT of the head suggesting old infarction. -Neurochecks- intact -seizure precautions. -EEG. get Echo, carotid US -Neurology ff -Telemetry. - unable to do MRI with defib/PM Right humeral fracture, Nondisplaced. -Continue sling. get orthopedic consult -Pain control with a bowel regimen. -Physical therapy. History of Urinary hesitancy The patient says that he has been following up with urology as an outpatient. -Continue Flomax. -Outpatient follow-up with urology. Hyperglycemia Likely a stress reaction. -good hemoglobin A1c. Nicotine abuse Smokes a pack a day. -cessation instruction. CAD/ PVD History of two cardiac stents and has had LE bypass. -continue ASA and Plavix. - as OP- ff up with Dr. gardner PT saleem after ortho evaluation PPx: Lovenox Code Status: Full
--- NOTE | 2018-01-17 16:29 | US ---
EXAM DATE: 01/17/2018 12:00 AM EDT AGE/SEX: 67 years / Male INDICATIONS: Syncope. CLINICAL DATA: This is the patient's initial encounter. Patient reports that signs and symptoms have been present for 1 day and indicates a pain score of 0/10. MEDICAL/SURGICAL HISTORY: Chronic obstructive pulmonary disease. Bleeding ulcer. Bradycardia. M yocardial infarction. Peripheral vascular disease. CABG. Angioplasty. Cardiac stent. COMPARISON: No prior exams available for comparison. VELOCITY PARAMETERS: ICA/CCA Ratio: Right 0.8 , Left 0.6 ICA: Right 55.7 cm/sec, Left 60.7 cm/sec CCA: Right 68.5 cm/sec, Left 94.4 cm/sec ECA: Right 116.2 cm/sec, Left 114.0 cm/sec Vertebral: Right 50.5 cm/sec antegrade, Left 52.3 cm/sec antegrade FINDINGS: Right Carotid: Mild arteriosclerotic plaque is visualized.The waveforms are within normal limits. Left Carotid: Mild arteriosclerotic plaque is visualized. The waveforms are within normal limits. Other: None. CONCLUSION: 1. Mild atherosclerotic plaquing at both carotid bifurcations. 2. No focal high-grade or hemodynamically significant stenosis is demonstrated. Electronically signed by: Curtis Burciaga MD 01/17/2018 4:28 PM EDT
--- NOTE | 2018-01-18 00:32 | MG ---
cc: Luis Armando Lal MD REFERRING PHYSICIAN: Evin Orourke DO CLINICAL HISTORY: Bleeding ulcer, bradycardia, cardiac defibrillator, COPD, right hip fracture, coronary artery disease, femoral bypass graft, [place], cardiac stent, angioplasty, tobacco use, alcohol use. MEDICATIONS: [place], aspirin, Plavix, Lovenox. DESCRIPTION: Background is slow at a rate of 5-6 Hz theta bilateral and symmetrical. There is excess movement artifact. There is no evidence of electrographic seizures or epileptiform discharges noted. Hyperventilation was omitted. Photic stimulation did not elicit a driving response. INTERPRETATION: This is an awake and drowsy EEG. The generalized slowing may indicate an encephalopathic process that may be secondary to medication effect, metabolic or hypoxic etiology. Absence of electrographic seizures or epileptiform discharges does not exclude diagnosis of epilepsy. Clinical correlation is recommended. Luis Armando Lal MD RGO/rw , 12:06 AM , 12:11 AM
[2018-01-18] MEDS: Morphine Inj 4 MG/ML Vial IV.PUSH PRN ×2 (06:02→12:08)
--- NOTE | 2018-01-18 07:29 | P.CONOP ---
[facility] Orthopedics Consult Note - [facility] Consult date: 01/18/18 Chief complaint: syncope/sz,hueral fracture Narrative: Joey is a 67-year-old male with a history of coronary disease and peripheral vascular disease. He had a fall. He does not clearly recall the fall. There is concern that he had possible seizure. He was on a sidewalk when he fell. He did hit his head. He has had right shoulder pain. Pain is worse with movement. He presented to the emergency room. X-rays revealed a minimally displaced right humerus fracture. He also had a laceration on his forehead. This was closed. Pain is worse with movement of his arm. Pain is improved with rest. He says he recently was treated at an outside hospital where he had his pacemaker adjusted. He says since going home last month he has had 2 seizure- like activities. He says on both accounts he passed out, once on the floor and once in a chair. He says on 1 of the occasions he felt a sensation like his tongue rolled up in his mouth. The patient currently experiences significant pain in his right arm. He says he has had his pacemaker interrogated recently. Review of Systems Patient denies fevers, chills, weight loss, headache, visual changes, hearing loss, chest pain, palpitations, shortness of breath, nausea, vomiting, no urinary changes, diarrhea, bowel changes, neck pain, back pain, skin rashes, weakness of extremities, easy bleeding, enlarged lymph nodes, numbness of extremities, anxiety, or depression. He complains of right arm and shoulder pain. Patient's social history, past medical history, and family history were reviewed on chart and with patient. [facility] - History History Provided By: Customer Professional / EMT - Medical History Medical History: Medical History (Last Reviewed 01/18/18 @ 07:27 by Shlomo Thao MD) Bleeding ulcer Bradycardia COPD (chronic obstructive pulmonary disease) Femoral-femoral bypass graft thrombosis, left Femoral-femoral bypass graft thrombosis, right Fracture of right hip requiring operative repair Myocardial infarction Peripheral vascular disease Cardiac defibrillator in place - Surgical History Surgical History: Surgical History (Last Reviewed 01/18/18 @ 07:27 by Shlomo Thao MD) H/O heart artery stent History of angioplasty of peripheral vessel - Family History Family History: Family History (Last Reviewed 01/18/18 @ 07:27 by Shlomo Thao MD) Other Adopted - Social History I have reviewed the patient's Social History: Yes - Tobacco History Second Hand Smoke Exposure: Yes Tobacco Use In Past 30 Days: Yes Smoking Status: Current every day smoker Tobacco Type: Cigarettes - Alcohol History How Often Do You Have a Drink Containing Alcohol: 4 or more times a week - Substance Use History Substance History: No History of Abuse - Travel History Recent Travel in the [place] Within the Last 8 Weeks: No Recent Travel Out of the Country Within the Last 8 Weeks: No - Immunization History Tetanus Immunization: <5 Years Tetanus Immunization Year if Known: 2016 Medications and Allergies Active Medications: Active Medications Acetaminophen (Tylenol) 650 mg PO Q4H PRN PRN Reason: Temp > 100.4 Hydrocodone Bitart/Acetaminophen ([place] 10/325) 1 tab PO Q4H PRN PRN Reason: pain 3-10 Last Admin: 01/18/18 03:40 Dose: 1 tab Aspirin (Ecotrin) 81 mg PO DAILY [facility] Last Admin: 01/17/18 09:58 Dose: 81 mg Clopidogrel Bisulfate (Plavix) 75 mg PO DAILY [facility] Last Admin: 01/17/18 09:58 Dose: 75 mg Enoxaparin Sodium (Lovenox Inj) 30 mg SQ DAILY [facility] Last Admin: 01/17/18 09:57 Dose: 30 mg Lorazepam (Ativan Inj) 1 mg IV.PUSH Q2H PRN PRN Reason: SEIZURES Morphine Sulfate (Morphine Inj) 4 mg IV.PUSH Q4H PRN PRN Reason: BREAKTHROUGH PAIN Last Admin: 01/18/18 06:02 Dose: 4 mg Senna/Docusate Sodium (Chey-Colace) 1 tab PO BID [facility] Last Admin: 01/17/18 20:22 Dose: Not Given Tamsulosin HCl (Flomax) 0.4 mg PO DAILY [facility] Last Admin: 01/17/18 09:58 Dose: 0.4 mg Allergies Allergy/AdvReac Type Severity Reaction Status Date / Time No Known Allergies Unknown Uncoded 04/09/17 15:07 Home Medications Medication Instructions Recorded Confirmed Type albuterol sulfate 1 puff INHALATION Q6H PRN 01/16/18 01/16/18 History clopidogrel [Plavix] 75 mg PO DAILY 01/16/18 01/16/18 History Advair HFA 2 BID 01/17/18 History Entresto PO 01/17/18 History ProAir HFA BID 01/17/18 History atorvastatin PO DAILY 01/17/18 History fluticasone 2 DAILY 01/17/18 History gabapentin TID 01/17/18 History hydrocodone-acetaminophen PO QID 01/17/18 History lisinopril PO DAILY 01/17/18 History metoprolol succinate PO DAILY 01/17/18 History mirtazapine PO ONCE PM 01/17/18 History Exam Vital signs: Vital Signs 01/17/18 08:00 01/17/18 12:00 01/17/18 16:34 Temperature 98.2 F 98.0 F Pulse Rate 69 74 Respiratory Rate 14 14 7 L Blood Pressure 153/70 H 125/70 Pulse Oximetry 98 99 01/17/18 20:00 01/18/18 00:00 01/18/18 04:00 Temperature 98.6 F 98.8 F 98.4 F Pulse Rate 70 70 70 Respiratory Rate 17 16 16 Blood Pressure 101/58 L 112/57 L 139/71 Pulse Oximetry 95 97 100 Intake & Output 01/17/18 01/18/18 01/18/18 18:59 06:59 18:59 Intake Total 1200 / 1200 Balance 1200 / 1200 Weight 83.5 kg Intake: Oral 1200 / 1200 Other: # Voids 5 # Bowel Movements 2 Narrative: Joey is a 67-year-old male. General: Awake and alert. No acute distress. Appears well-developed well- nourished Head: Normocephalic, he has a laceration on his forehead which has been closed, pupils are equal Neck: Soft, nontender, trachea midline Abdomen: Soft, nondistended Examination of right arm reveals pain with any shoulder motion. He is tender to palpation of the proximal humerus. He has no tenderness around the elbow, wrist, or hand. Skin is intact. Radial pulse is palpable. Normal capillary refill in fingers. Sensation is intact in radial, ulnar, and median nerve distributions. Quilting Supervisor strength is +5. No lymphadenopathy noted. Examination of left arm reveals no pain or deformity with shoulder, elbow, or wrist motion. Skin is intact. Radial pulse is palpable. Normal capillary refill in fingers. Sensation is intact in radial, ulnar, and median nerve distributions. Quilting Supervisor strength is +5. No lymphadenopathy noted. Examination of left lower extremity reveals no pain or deformity with hip, knee , or ankle motion. Skin is intact. Sensation is intact in left foot. Dorsalis pedis pulse is palpable. Normal capillary refill and feet. Thigh and calf compartments are soft. No lymphadenopathy noted. +5 strength of ankle dorsiflexion and plantarflexion. Examination of right lower extremity reveals no pain or deformity with hip, knee , or ankle motion. Skin is intact. Sensation is intact in right foot. Dorsalis pedis pulse is palpable. Normal capillary refill and feet. Thigh and calf compartments are soft. No lymphadenopathy noted. +5 strength of ankle dorsiflexion and plantarflexion. Results - Labs Result Diagrams: 01/17/18 02:45 01/17/18 02:45 Labs: Laboratory Results - last 24 hr 01/16/18 01/17/18 01/17/18 13:56 07:42 13:33 POC Glucose 111 H 154 H Hemoglobin A1c 6.0 - Diagnostic results Imaging: Impressions Carotid Doppler Study 01/17/18 00:00 CONCLUSION: 1. Mild atherosclerotic plaquing at both carotid bifurcations. 2. No focal high-grade or hemodynamically significant stenosis is demonstrated. Shoulder x-ray: report reviewed, image reviewed Assessment and Plan - Assessment and Plan Joey had a syncopal type episode with questionable seizure-like activity. He sustained a minimally displaced right humerus fracture. X-rays and lab work were reviewed. Treatment options were discussed with patient. At this point the fractures are relatively well aligned. I would recommend nonsurgical treatment. The risk and benefits of surgical and nonsurgical options were discussed. Patient is in agreement with nonsurgical treatment. All questions were answered. He will need to follow-up with me in office in 1-2 weeks for repeat x-rays of right shoulder. All questions were answered. He understands that if fracture displaces significantly, surgical intervention could become necessary. A mid-level provider in my office (nurse practitioner or physician environmental assistant) may see this patient on follow-up visits and continue to implement the objectives of this plan including: Starting or adjusting medications, injections , cast application, orthotics, brace application, physical therapy, radiological studies (including x-ray, MRI, CT, ultrasound, bone scan), vascular studies, neurologic studies, specialist consultation, and proceeding with surgical management, as appropriate.
[2018-01-18] MEDS: Enoxaparin Inj 30 MG/0.3 ML Syringe SQ SCH ×2 (08:48→10:50)
[2018-01-18] MEDS: Senna/Docusate Sodium 8.6/50 MG Tablet PO SCH ×2 (08:49→21:22)
--- NOTE | 2018-01-18 12:55 | ECHRPT ---
Indication: Syncope CONCLUSIONS Normal left ventricular size. Wall thickness is measured at the upper limits of normal. The left ventricular systolic function is mildly reduced with an estimated ejection fraction in the range of 45- 50%. A pacemaker wire is noted. Trace mitral valve regurgitation. There is trace tricuspid valve regurgitation. The estimated pulmonary arterial pressure is 33 mmHg. BP: / HR: Rhythm: MEASUREMENTS (Male / Female) Normal Values Technical Quality:Technically difficult study 2D ECHO LV Diastolic Diameter PLAX 4.6 cm 4.2 - 5.9 / 3.9 - 5.3 cm LV Systolic Diameter PLAX 3.4 cm IVS Diastolic Thickness 1.1 cm 0.6 - 1.0 / 0.6 - 0.9 cm LVPW Diastolic Thickness 1.1 cm 0.6 - 1.0 / 0.6 - 0.9 cm LV Relative Wall Thickness 0.5 RV Internal Dim ED PLAX 2.8 cm LVOT Diameter 2.3 cm Aortic Root Diameter 3.7 cm LA Systolic Diameter LX 4.2 cm 3.0 - 4.0 / 2.7 - 3.8 cm M-MODE AV Cusp Separation MM 2.2 cm DOPPLER AV Peak Velocity 137.0 cm/s AV Peak Gradient 7.5 mmHg LVOT Peak Velocity 101.0 cm/s LVOT Peak Gradient 4.1 mmHg AV Area Cont Eq pk 3.1 cm Mitral E Point Velocity 104.0 cm/s LV E' Lateral Velocity 9.6 cm/s Mitral E to LV E' Lateral Ratio 10.9 LV E' Septal Velocity 9.3 cm/s Mitral E to LV E' Septal Ratio 11.2 TR Peak Velocity 236.0 cm/s TR Peak Gradient 22.3 mmHg Right Atrial Pressure 10.0 mmHg Pulmonary Artery Systolic Pressu 32.3 mmHg Right Ventricular Systolic Press 32.3 mmHg PV Peak Velocity 95.0 cm/s PV Peak Gradient 3.6 mmHg FINDINGS LEFT VENTRICLE Normal left ventricular size. Wall thickness is measured at the upper limits of normal. The left ventricular systolic function is mildly reduced with an estimated ejection fraction in the range of 45- 50%. RIGHT VENTRICLE A pacemaker wire is noted. LEFT ATRIUM The left atrial size is normal. RIGHT ATRIUM The right atrial size is normal. ATRIAL SEPTUM Normal atrial septal thickness without atrial level shunting by limited color doppler interrogation. AORTA The aortic root and proximal ascending aorta are normal in size on limited imaging. MITRAL VALVE Trace mitral valve regurgitation. AORTIC VALVE Trileaflet aortic valve. TRICUSPID VALVE There is trace tricuspid valve regurgitation. The estimated pulmonary arterial pressure is 33 mmHg. PULMONARY VALVE No pulmonary valve regurgitation or stenosis. VESSELS The inferior vena cava is normal in size. PERICARDIUM No pericardial effusion. Melissa Washington MD (Electronically Signed) Final Date:18 January 2018 12:55
[2018-01-18] MEDS: Gabapentin 300 MG Capsule PO SCH ×2 (13:15→17:09)
--- NOTE | 2018-01-18 15:09 | P.PN ---
Subjective Interval history: telemetry reviewed- episodes of WCT tachcyardia last evening- asymptomatic no episodes of dizziness since admission Physical Exam Vital signs: Vital Signs 01/17/18 16:34 01/17/18 20:00 01/18/18 00:00 Temperature 98.6 F 98.8 F Pulse Rate 70 70 Respiratory Rate 7 L 17 16 Blood Pressure 101/58 L 112/57 L Pulse Oximetry 95 97 01/18/18 04:00 01/18/18 08:00 01/18/18 08:49 Temperature 98.4 F 98.4 F Pulse Rate 70 70 Respiratory Rate 16 18 18 Blood Pressure 139/71 122/67 Pulse Oximetry 100 100 01/18/18 11:00 01/18/18 12:00 01/18/18 12:52 Temperature 98.9 F Pulse Rate 73 Respiratory Rate 18 14 18 Blood Pressure 136/67 Pulse Oximetry 91 L 01/18/18 13:44 Temperature Pulse Rate Respiratory Rate 18 Blood Pressure Pulse Oximetry Intake & Output 01/17/18 01/18/18 01/18/18 18:59 06:59 18:59 Intake Total 1200 / 1200 Balance 1200 / 1200 Weight 83.5 kg Intake: Oral 1200 / 1200 Other: # Voids 5 Date of Last Bowel Movement 01/17/18 # Bowel Movements 2 Narrative: awake and alert, no distress right periorbital ecchymoses neck supple UE- S/S in palce lungs- no rales regular rhythm abdomen soft, nontender extremities no edema Results - Labs CBC & Chem 7: 01/17/18 02:45 01/17/18 02:45 Laboratory Results - last 24 hr 01/18/18 09:06 POC Glucose 91 - Imaging Impressions Carotid Doppler Study 01/17/18 00:00 CONCLUSION: 1. Mild atherosclerotic plaquing at both carotid bifurcations. 2. No focal high-grade or hemodynamically significant stenosis is demonstrated. Assessment and Plan - Plan 67 years old male left handed Recurrent Syncope x CAD/ PVD History of two cardiac stents and has had LE bypass. Epsides of runs of WCT reviewed telemetry 01/17 evening History of AICD -continue ASA and Plavix. - as OP- ff Dr. mackay, [place] - He has had multiple episodes of passing out since last month 3x - . CT of the head suggesting old infarction. -Neurochecks- intact -seizure precautions. -EEG- no epileptiform activities Echo- EF45-50%, carotid US- no hemodynamically significant stenosis -Neurology ff -Telemetry.- epsodes of WCT - consult cardiology in house- ff Dr. Mackay as OP, AICD was placed by Dr. Jefferson - unable to do MRI with defib/PM - order for Holter Right humeral fracture, Nondisplaced. -Continue sling. get orthopedic consult -Pain control with a bowel regimen. -Physical therapy. History of Urinary hesitancy The patient says that he has been following up with urology as an outpatient. -Continue Flomax. -Outpatient follow-up with urology. Hyperglycemia Likely a stress reaction. -good hemoglobin A1c. Nicotine abuse Smokes a pack a day. -cessation instruction. PT eval after ortho evaluation PPx: Lovenox Code Status: Full
[2018-01-18] MEDS: Morphine Sulfate Inj 2 MG/ML Vial IV.PUSH PRN ×2 (16:08→20:11)
--- NOTE | 2018-01-18 19:33 | P.PNNEU ---
Subjective Subjective Comments: No recurrent episodes of LOC. Pt states he has had 3 spells of LOC--2 while sitting in a chair and the third while walking up a step. He has no warning sx. Denies chest pain or palpitations. He sudden looses consciousness for only a few seconds. During one episode, he felt his tongue murphy gback. THere is no bladder incontinence. When he comes to he is not confused or disoriented. He as a pacemaker./defibrillator in place recently interrogated and no event noted according to pt Active Medications: Active Medications Acetaminophen (Tylenol) 650 mg PO Q4H PRN PRN Reason: Temp > 100.4 Hydrocodone Bitart/Acetaminophen ([place] 10/325) 1 tab PO Q4H PRN PRN Reason: pain 3-10 Last Admin: 01/18/18 17:08 Dose: 1 tab Aspirin (Ecotrin) 81 mg PO DAILY [facility] Last Admin: 01/18/18 08:49 Dose: 81 mg Clopidogrel Bisulfate (Plavix) 75 mg PO DAILY [facility] Last Admin: 01/18/18 08:49 Dose: 75 mg Enoxaparin Sodium (Lovenox Inj) 30 mg SQ DAILY [facility] Last Admin: 01/18/18 10:50 Dose: Not Given Gabapentin (Neurontin) 300 mg PO TID [facility] Last Admin: 01/18/18 17:09 Dose: 300 mg Lorazepam (Ativan Inj) 1 mg IV.PUSH Q2H PRN PRN Reason: SEIZURES Morphine Sulfate (Morphine Inj) 1 mg IV.PUSH Q4H PRN PRN Reason: BREAKTHROUGH PAIN Last Admin: 01/18/18 16:08 Dose: 1 mg Senna/Docusate Sodium (Chey-Colace) 1 tab PO BID [facility] Last Admin: 01/18/18 08:49 Dose: 1 tab Tamsulosin HCl (Flomax) 0.4 mg PO DAILY [facility] Last Admin: 01/18/18 08:49 Dose: 0.4 mg Allergies/Adverse Reactions: Allergies Allergy/AdvReac Type Severity Reaction Status Date / Time No Known Allergies Unknown Uncoded 04/09/17 15:07 Physical Exam Vital signs: Vital Signs 01/17/18 20:00 01/18/18 00:00 01/18/18 04:00 Temperature 98.6 F 98.8 F 98.4 F Pulse Rate 70 70 70 Respiratory Rate 17 16 16 Blood Pressure 101/58 L 112/57 L 139/71 Pulse Oximetry 95 97 100 01/18/18 08:00 01/18/18 08:49 01/18/18 11:00 Temperature 98.4 F Pulse Rate 70 Respiratory Rate 18 18 18 Blood Pressure 122/67 Pulse Oximetry 100 01/18/18 12:00 01/18/18 12:52 01/18/18 13:44 Temperature 98.9 F Pulse Rate 73 Respiratory Rate 14 18 18 Blood Pressure 136/67 Pulse Oximetry 91 L 01/18/18 16:00 Temperature 98.1 F Pulse Rate 70 Respiratory Rate 16 Blood Pressure 120/65 Pulse Oximetry 99 Intake & Output 01/18/18 01/18/18 01/19/18 06:59 18:59 06:59 Intake Total 1200 / 1200 Balance 1200 / 1200 Weight 83.5 kg Intake: Oral 1200 / 1200 Other: # Voids 5 Date of Last Bowel Movement 01/17/18 # Bowel Movements 2 - Routine Neurological Exam alert, oriented. speech is normal CN intact MOTOR 5/5 BUE Objective Laboratory Results - last 24 hr 01/18/18 09:06 POC Glucose 91 Diagnostic Tests: EEG--shows slowing but no epileptiform features ECHO--nl carotid US--no significant stenosis Review/Management - Diagnosis (1) Syncope Code(s): R55 - Syncope and collapse Status: Acute Current Visit: Yes - Review/Management Plan: THe history is not consistent with seizure with the very brief duration and no postictal state. R/o cardiogenic syncope.
--- NOTE | 2018-01-19 00:43 | MB ---
cc: Justo Jefferson MD DATE: 01/18/2018 REASON FOR CONSULTATION: Tachyarrhythmia, head trauma, fall. HISTORY OF PRESENT ILLNESS: Mr. Patel is a 67-year-old gentleman with history of coronary artery disease, peripheral vascular disease, question of cardiomyopathy, recent defibrillator generator change, was walking around on Thursday. He lifted his feet and fell on the curb. Lost consciousness, was on the floor. He was brought to the emergency room. He has a right frontal occipital area clot of around 3 cm and right arm immobilization due to fracture. The defibrillator was interrogated. No significant tachyarrhythmia was found. The patient was admitted. I was consulted for further evaluation and management. The chart was reviewed. The patient was evaluated. ALLERGIES: None. SOCIAL HISTORY: The patient denies smoking and drinking. FAMILY HISTORY: Noncontributory to his current medical condition. MEDICATIONS: Currently, Mr. Patel is on: 1. Acetaminophen. 2. Aspirin. 3. Plavix 75 mg a day. 4. Lovenox subcu. 5. Neurontin 200 mg 3 times a day. 6. He is on [place]. 7. Ativan p.r.n. 8. Flomax 0.4 mg a day. REVIEW OF SYSTEMS: Currently, he has no chest pain, no chest discomfort, some headache and right arm pain. PHYSICAL EXAMINATION: GENERAL: Alert, fully oriented. VITAL SIGNS: His blood pressure on evaluation 120/65, pulse 70, respiratory rate 18. HEENT: Right frontal area with a 3 cm clot . CARDIOVASCULAR: S1, S2., regular. ABDOMEN: Soft. No mass. EXTREMITIES: No edema. Electrocardiogram indicates a Bi-V pacing. LABORATORY DATA: Hemoglobin 12.8, white blood cell 5.8, potassium 4.5, creatinine 1.24. Troponin 0.03. I had a long conversation with Mr. Patel. The way he explained the episode, he was walking and tried to take a step and lost fall. Apparently, because of the impact and the concussion for this bad head trauma he maybe lost consciousness. He has a clot in the right frontal area. He has right humeral fracture. Interrogation of the defibrillator showed no significant sustained malignant arrhythmia. The device is well functioning. The gentleman apparently has some type of seizure reported, but I am not sure. Apparently, this is a case of loss of equilibrium and fall. At this point, my recommendation is continue current management. Patient when stable, can be discharged home and will follow in my office in 3-4 weeks. I discussed the case extensively with him. Continue current management. MD OMER Collins/calos/ , 10:51 PM , 11:03 PM
[2018-01-19] MEDS: Morphine Sulfate Inj 2 MG/ML Vial IV.PUSH PRN (05:51)
[2018-01-19] MEDS: Gabapentin 300 MG Capsule PO SCH (08:27)
[2018-01-19] MEDS: Enoxaparin Inj 30 MG/0.3 ML Syringe SQ SCH (08:28)
[2018-01-19] MEDS: Senna/Docusate Sodium 8.6/50 MG Tablet PO SCH (08:28)
--- NOTE | 2018-01-19 08:38 | P.PNCA ---
Subjective Interval history: Up in chair, feeling better but complains of pain in his right arm, 8/10, constant, throbbing. Medications and Allergies Active Medications: Active Medications Acetaminophen (Tylenol) 650 mg PO Q4H PRN PRN Reason: Temp > 100.4 Hydrocodone Bitart/Acetaminophen (Tuttle 10325) 1 tab PO Q4H PRN PRN Reason: pain 3-10 Last Admin: 01/19/18 08:27 Dose: 1 tab Aspirin (Ecotrin) 81 mg PO DAILY [facility] [place] Last Admin: 01/19/18 08:27 Dose: 81 mg Clopidogrel Bisulfate (Plavix) 75 mg PO DAILY [facility] [place] Last Admin: 01/19/18 08:27 Dose: 75 mg Enoxaparin Sodium (Lovenox Inj) 30 mg SQ DAILY [facility] [place] Last Admin: 01/19/18 08:28 Dose: Not Given Gabapentin (Neurontin) 300 mg PO TID [facility] [place] Last Admin: 01/19/18 08:27 Dose: 300 mg Lorazepam (Ativan Inj) 1 mg IV.PUSH Q2H PRN PRN Reason: SEIZURES Morphine Sulfate (Morphine Inj) 1 mg IV.PUSH Q4H PRN PRN Reason: BREAKTHROUGH PAIN Last Admin: 01/19/18 05:51 Dose: 1 mg Senna/Docusate Sodium (Chey-Colace) 1 tab PO BID [facility] [place] Last Admin: 01/19/18 08:28 Dose: Not Given Tamsulosin HCl (Flomax) 0.4 mg PO DAILY [facility] [place] Last Admin: 01/19/18 08:26 Dose: 0.4 mg Allergies Allergy/AdvReac Type Severity Reaction Status Date / Time No Known Allergies Unknown Uncoded 04/09/17 15:07 Home Medications Medication Instructions Recorded Confirmed Type albuterol sulfate 1 puff INHALATION Q6H PRN 01/16/18 01/16/18 History clopidogrel [Plavix] 75 mg PO DAILY 01/16/18 01/16/18 History Advair HFA 2 BID 01/17/18 History Entresto PO 01/17/18 History ProAir HFA BID 01/17/18 History atorvastatin PO DAILY 01/17/18 History fluticasone 2 DAILY 01/17/18 History gabapentin TID 01/17/18 History hydrocodone-acetaminophen PO QID 01/17/18 History lisinopril PO DAILY 01/17/18 History metoprolol succinate PO DAILY 01/17/18 History mirtazapine PO ONCE PM 01/17/18 History Physical Exam Vital signs: Vital Signs 01/18/18 08:49 01/18/18 11:00 01/18/18 11:49 Temperature Pulse Rate 76 Respiratory Rate 18 18 Blood Pressure Pulse Oximetry 01/18/18 12:00 01/18/18 12:52 01/18/18 13:44 Temperature 98.9 F Pulse Rate 73 Respiratory Rate 14 18 18 Blood Pressure 136/67 Pulse Oximetry 91 L 01/18/18 16:00 01/18/18 20:00 01/19/18 00:00 Temperature 98.1 F 98 F 97.9 F Pulse Rate 70 79 70 Respiratory Rate 16 18 18 Blood Pressure 120/65 153/79 H 136/80 Pulse Oximetry 99 98 100 01/19/18 04:00 Temperature 98.1 F Pulse Rate 68 Respiratory Rate 18 Blood Pressure 149/77 H Pulse Oximetry 100 Intake & Output 01/18/18 01/19/18 01/19/18 18:59 06:59 18:59 Intake Total 1080 / 1080 Balance 1080 / 1080 Weight 205 lb 4.006 oz Intake: Oral 1080 / 1080 Other: # Voids 4 4 Date of Last Bowel Movement 01/17/18 01/18/18 Narrative: GENERAL: Well-developed, well-nourished male sitting up in a chair in no acute distress. SKIN: Warm and dry. Various abrasions and lacerations on head, right arm, right knee. HEAD: Laceration over right eyebrow, stapled, dry without erythema. Normocephalic. EYES: Pupils equal and round. No scleral icterus. No injection or drainage. ENT: No nasal bleeding or discharge. Mucous membranes pink and moist. NECK: Trachea midline. No JVD. CARDIOVASCULAR: Regular rate and rhythm. RESPIRATORY: No accessory muscle use. Clear to auscultation. Breath sounds equal bilaterally. GASTROINTESTINAL: Abdomen soft, non-tender, nondistended. Hepatic and splenic margins not palpable. MUSCULOSKELETAL: Right arm in a sling/swath. Normal ROM with left upper extremity and BLE. NEUROLOGICAL: Awake and alert. No obvious cranial nerve deficits. Motor grossly within normal limits. Normal speech. PSYCHIATRIC: Appropriate mood and affect; insight and judgment normal. Results 01/17/18 02:45 01/17/18 02:45 Intake and Output 01/18/18 01/19/18 01/19/18 22:59 06:59 14:59 Intake Total 1080 / 1080 Balance 1080 / 1080 Intake: Oral 1080 / 1080 Other: # Voids 4 4 Date of Last Bowel Movement 01/18/18 Weight 205 lb 4.006 oz - Imaging and Cardiology Imaging: Impressions Carotid Doppler Study 01/17/18 00:00 CONCLUSION: 1. Mild atherosclerotic plaquing at both carotid bifurcations. 2. No focal high-grade or hemodynamically significant stenosis is demonstrated. Assessment and Plan - Assessment (1) Syncope Code(s): R55 - Syncope and collapse Status: Acute Plan: Syncope versus seizure. ICD interrogated with no shock or ATP noted. Short burst of WCT overnight. Patient states he has had previous episodes which he believes are seizures. No corresponding arrhythmia, WCT/ATP/shock seen on previous ICD interrogations. Stable from a cardiac standpoint. EP will sign off at this point, neuro following. Reconsult as needed per my discussion with Dr. Jefferson. (1) Syncope Qualifiers: Syncope type: unspecified Qualified Code(s): R55 - Syncope and collapse
[2018-01-19 08:41] VITALS: BP 132/77; TEMP 98.3; O2SAT 99
[2018-01-19 10:33] VITALS: RESP 18
--- NOTE | 2018-01-19 10:54 | P.PN ---
Subjective Interval history: up and ambulating with his cane Physical Exam Vital signs: Vital Signs 01/18/18 11:00 01/18/18 11:49 01/18/18 12:00 Temperature 98.9 F Pulse Rate 76 73 Respiratory Rate 18 14 Blood Pressure 136/67 Pulse Oximetry 91 L 01/18/18 12:52 01/18/18 13:44 01/18/18 16:00 Temperature 98.1 F Pulse Rate 70 Respiratory Rate 18 18 16 Blood Pressure 120/65 Pulse Oximetry 99 01/18/18 20:00 01/19/18 00:00 01/19/18 04:00 Temperature 98 F 97.9 F 98.1 F Pulse Rate 79 70 68 Respiratory Rate 18 18 18 Blood Pressure 153/79 H 136/80 149/77 H Pulse Oximetry 98 100 100 01/19/18 08:00 01/19/18 09:00 Temperature 98.3 F Pulse Rate 70 Respiratory Rate 20 18 Blood Pressure 132/77 Pulse Oximetry 99 Intake & Output 01/18/18 01/19/18 01/19/18 18:59 06:59 18:59 Intake Total 1080 / 1080 Balance 1080 / 1080 Weight 93.1 kg Intake: Oral 1080 / 1080 Other: # Voids 4 4 Date of Last Bowel Movement 01/17/18 01/18/18 Results - Labs CBC & Chem 7: 01/17/18 02:45 01/17/18 02:45 Assessment and Plan - Plan 67 years old male left handed Recurrent Syncope CAD/ PVD History of two cardiac stents and has had LE bypass. Epsides of runs of WCT reviewed telemetry 01/17 evening History of AICD -continue ASA and Plavix. - as OP- ff Dr. 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 -Neurochecks- intact -seizure precautions. -EEG- no epileptiform activities Echo- EF45-50%, carotid US- no hemodynamically significant stenosis -Neurology ff- doubt seizure per Dr. Pagan -Telemetry.- epsodes of WCT - consult cardiology in house- ff Dr. Mackay as OP, AICD was placed by Dr. Jefferson - unable to do MRI with defib/PM - seen by Dr. Jefferson - stable from cardiac standpoint Right humeral fracture, Nondisplaced. -Continue sling. seen by Orthopedics -Pain control with a bowel regimen. -Physical therapy. -OP ff up with Dr. Tinoco in 1-2 week - Inastruct atient to call for appt in History of Urinary hesitancy The patient says that he has been following up with urology as an outpatient. -Continue Flomax. -Outpatient follow-up with urology. Hyperglycemia Likely a stress reaction. -good hemoglobin A1c. Nicotine abuse Smokes a pack a day. -cessation instruction. PCP- Dr. Main 01/21 ADD: his pharmacy called 01/20 - s/w our [facility] nurse with inquiry -apparently - get chronic pain meds last #120 monthly Eforcse queried still have 8 more days left worth and maybe more since he was inhouse for 2 days Cancel script OP ff up with PCP- Dr. Main and ortho PPx: Lovenox Code Status: Full
[2018-01-19 11:20] VITALS: PULSE 69
--- NOTE | 2018-01-19 11:37 | P.DCO ---
- Physical Therapy Order: Evaluate and treat, Improve ambulation - Occupational Therapy Order: Improve ADL - Home Health Nursing Order: Medical education, Signs/symptoms of disease process, Medication education-adverse effect - Machine Cutter Order: To evaluate: Living conditions/environment, Support services - Case Management Consult Yes - Certification I have seen patient Joey Patel on 01/19/18. My clinical findings support the need for the requested home health care services because: Limited mobility due to disease progression, Deconditioned with increased weakness, Need for psychosocial assistance, High risk of falls I certify that my clinical findings support that this patient is homebound because: Poor cardiac reserve
--- NOTE | 2018-01-19 19:24 | P.DS ---
Date of admission: 01/17/18 15:05 Primary care physician: Aidan Main Anticipated date of discharge: 01/19/18 Brief History from admission: The patient is a 67-year-old male with a past medical history of CAD and peripheral vascular disease who is presenting to the hospital after passing out. The patient says he was walking earlier and stepped on a sidewalk when all of a sudden he woke up bleeding from his head. He denied any symptoms prior to passing out. He said there were people around him and that he thinks he passed out for only a few seconds. He says he recently was treated at an outside hospital where he had his pacemaker adjusted. He says since going home last month he has had 2 seizure-like activities. He says on both accounts he passed out, once on the floor and once in a chair. He says on 1 of the occasions he felt a sensation like his tongue rolled up in his mouth. The patient currently experiences significant pain in his right arm. He says he has had his pacemaker interrogated recently and also today. DS: Summary Hospital Course: 67 years old male left handed Recurrent Syncope CAD/ PVD History of two cardiac stents and has had LE bypass. Epsides of runs of [facility] reviewed telemetry 01/17 evening History of AICD -continue ASA and Plavix. - as OP- ff Dr. 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 -Neurochecks- intact -seizure precautions. -EEG- no epileptiform activities Echo- EF45-50%, carotid US- no hemodynamically significant stenosis -Neurology ff- doubt seizure per Dr. Pagan -Telemetry.- epsodes of T - consult cardiology in house- ff Dr. Mackay as OP, AICD was placed by Dr. Jefferson - unable to do MRI with defib/PM - seen by Dr. Jefferson - stable from cardiac standpoint Right humeral fracture, Nondisplaced. -Continue sling. seen by Orthopedics -Pain control with a bowel regimen. -Physical therapy. -OP ff up with Dr. Tinoco in 1-2 week - Inastruct atient to call for appt in History of Urinary hesitancy The patient says that he has been following up with urology as an outpatient. -Continue Flomax. -Outpatient follow-up with urology. Hyperglycemia Likely a stress reaction. -good hemoglobin A1c. Nicotine abuse Smokes a pack a day. -cessation instruction. PCP- Dr. Main 01/21 ADD: his pharmacy called 01/20 - s/w our [facility] nurse with inquiry -apparently - get chronic pain meds last #120 monthly Eforcse queried still have 8 more days left worth and maybe more since he was inhouse for 2 days Cancel script OP ff up with PCP- Dr. Main and ortho - Time Spent with Patient Total time spent providing and/or coordinating discharge services: Greater than 30 minutes Exam Vital signs: Vital Signs 01/18/18 20:00 01/19/18 00:00 01/19/18 04:00 Temperature 98 F 97.9 F 98.1 F Pulse Rate 79 70 68 Respiratory Rate 18 18 18 Blood Pressure 153/79 H 136/80 149/77 H Pulse Oximetry 98 100 100 01/19/18 08:00 01/19/18 09:00 Temperature 98.3 F Pulse Rate 70 69 Respiratory Rate 20 18 Blood Pressure 132/77 Pulse Oximetry 99 Intake & Output 01/19/18 01/19/18 01/20/18 06:59 18:59 06:59 Weight 93.1 kg Other: # Voids 4 Date of Last Bowel Movement 01/18/18 Results Procedures completed during hospitalization: none - Impressions ITS Impressions Head CT 01/16/18 13:38 CONCLUSION: 1. No focal or acute intracranial hemorrhage. 2. Focal area of encephalomalacia involving the right temporal parietal lobe adjacent to the right sylvian fissure suggestive of an old area of infarction. If clinically indicated, this can be further evaluated with an MRI of the brain on a nonemergent outpatient basis. . Chest X-Ray 01/16/18 13:39 CONCLUSION: 1. Nondisplaced oblique fracture involving the proximal shaft of the right humerus. 2. No new or acute intrathoracic disease. Humerus X-Ray 01/16/18 15:56 CONCLUSION: Nondisplaced oblique fracture involving the proximal shaft of the right humerus. Carotid Doppler Study 01/17/18 00:00 CONCLUSION: 1. Mild atherosclerotic plaquing at both carotid bifurcations. 2. No focal high-grade or hemodynamically significant stenosis is demonstrated. Discharge Plan - Discharge Disposition Patient Disposition: W/Home Health Service - Discharge Condition Condition: Stable - Discharge Order Discharge Orders: Discharge Order (Routine); Ordered 01/19/18 Ordered By: Aguila Carbajal - Discharge Details Anticipated Discharge Date: 01/19/18 - Physicians Team Attending Provider: Aguila Carbajal Other Providers: Luis Armando Lal MD ; Joel Brooks MD ; Shlomo Tinoco MD ; Melissa Washington MD ; Justo Jefferson MD
== END 2018-01-19 12:05 | disposition home health service (06) ==
LOC: NEDA 13:23 → NEPE 13:23 → N05 18:10
PROVIDERS: ADMIT Internal Medicine; ATTEND Internal Medicine